=== PATIENT | female | born 1990 ===

== ENCOUNTER 2018-11-19 20:59 | Inpatient (IN) | payer OTHER ==
--- NOTE | 2018-11-19 21:38 | ED PDOC ---
HPI: Abdomen Time Seen by Provider: 11/19/18 21:28 Chief Complaint (Nursing): Abdominal Pain Chief Complaint (Provider): abdominal pain History Per: Patient History/Exam Limitations: no limitations Onset/Duration Of Symptoms: Days (4) Current Symptoms Are (Timing): Still Present Location Of Pain/Discomfort: Diffuse Quality Of Discomfort: "Pain" Associated Symptoms: Constipation Additional Complaint(s): 28 y/o female presents for evaluation of abdominal pain x 4 days. Associated constipation; last BM 4 days ago. Patient reports having gastric sleeve surgery on 11/04/18 in [place] and has been drinking protein shakes and takeing Tylenol with codeine for pain. States she tried a suppository yesterday without success. Denies fever, nausea/vomiting, chest pain, shortness of breath, palpit ations, urinary symptoms. Past Medical History Reviewed: Historical Data, Nursing Documentation, Vital Signs Vital Signs: Last Vital Signs Temp 97.6 F 11/19/18 21:11 Pulse 86 11/19/18 21:11 Resp 18 11/19/18 21:11 BP Pulse Ox 100 11/19/18 21:11 - Medical History PMH: No Chronic Diseases - Surgical History Surgical History: Cholecystectomy - Family History Family History: States: No Known Family Hx - Allergies Allergies/Adverse Reactions: Allergies Allergy/AdvReac Type Severity Reaction Status Date / Time No Known Allergies Allergy Verified 11/19/18 21:11 Review of Systems ROS Statement: Except As Marked, All Systems Reviewed And Found Negative Gastrointestinal: Positive for: Abdominal Pain, Constipation Physical Exam - Reviewed Nursing Documentation Reviewed: Yes Vital Signs Reviewed: Yes - Physical Exam Appears: Positive for: Well, Non-toxic, Uncomfortable Head Exam: Positive for: ATRAUMATIC, NORMAL INSPECTION, NORMOCEPHALIC Skin: Positive for: Normal Color Eye Exam: Positive for: Normal appearance ENT: Positive for: Normal ENT Inspection Cardiovascular/Chest: Positive for: Regular Rate, Rhythm Respiratory: Positive for: Normal Breath Sounds Gastrointestinal/Abdominal: Positive for: Bowel Sounds, Soft, Tenderness (d iffuse) Back: Positive for: Normal Inspection Extremity: Positive for: Normal ROM Neurologic/Psych: Positive for: Alert, Oriented (x3) - Laboratory Results Result Diagrams: 11/20/18 03:01 11/20/18 03:01 - ECG O2 Sat by Pulse Oximetry: 100 - Other Rad obstructive series X-Ray: Viewed By Me X-Ray Interpretation: large amount of stool throughout colon; no air-fluid levels noted - Progress ED Course And Treament: -upreg -obstructive series -lactulose -fleet enema -Patient reports no bowel movement after enema Soap suds enema ordered -Patient reports no bowel movement after soap suds enema -Manual disimpaction attempted by customs entry writer; large piece of stool removed. Patient refusing further attempts 1:30 Patient had bowel movement but now complaining of nausea Zofran ODT ordered 3:00 Patient vomiting; states she doesn't feel good Will order labs, CT abd/pelvis to r/out SBO. IV zofran, IV NS bolus ordered Patient refusing ABG and subsequent blood draw for lactic acid CT SCAN OF THE ABDOMEN AND PELVIS WITH CONTRAST. CLINICAL HISTORY: Abdominal pain. TECHNIQUE: Multiple axial and coronal CT images were obtained through the abdomen and pelvis after administration of intravenous contrast material. COMMENTS: Fluid filled mildly dilated colon. Surgical changes of the stomach. Fluid-filled mildly dilated small bowels. The liver is of uniform attenuation without mass or defect. There is no intra or extrahepatic biliary ductal dilatation. The spleen is normal. The gallbladder is surgically absent. The pancreas is of normal contour and attenuation characteristics. There is no evidence of adrenal mass. Both kidneys demonstrate prompt and equal nephrograms. The kidneys are normal in size, shape and configuration. There is no evidence of renal or ureteral mass. No renal or ureteral calculi are identified. There is no hydroureter or hydronephrosis. No evidence for appendicitis. There is no bowel wall thickening. No evidence for small or large bowel obstruction. There is no evidence of abdominal ascites or lymphadenopathy. There is no evidence of intrinsic or extrinsic bladder mass. There is no pelvic ascites or lymphadenopathy. Images of the lung bases show no evidence of pleural or parenchymal mass. There are no pleural effusions. The bony structures are free of lytic or blastic le sions. IMPRESSION: Ileus. No evidence of bowel obstruction or pneumatosis intestinalis. Gastric sleeve surgery Patient still actively vomiting and complaining of pain Patient evaluated by surgical scrub technician on-call; will place in observation under hospitalist Case discussed with Dr. Pettit for admission Disposition - Clinical Impression Clinical Impression: Abdominal pain, Intractable vomiting, Postoperative ileus - Patient ED Disposition Is Patient to be Admitted: Yes - Disposition Disposition Time: 05:28 Condition: FAIR
[2018-11-20] MEDS ORDERED: Sodium Chloride 0.9% 1,000 ML IV STA (03:01)
[2018-11-20 03:12] LABS: BASO % 0.3 % (0.0-2.0); EOS % 0.1 % (0.0-4.0); HEMOGLOBIN 14.9 g/dL (12.0-16.0); LYMPH # 0.8 K/uL (1.0-4.3); LYMPH % 5.4 % (20.0-40.0); MEAN CELL VOLUME 92.5 fl (81.0-99.0); MEAN CORPUSCULAR HEMOGLOBIN 30.8 pg (27.0-31.0); MEAN CORPUSCULAR HGB CONC 33.3 g/dL (33.0-37.0); MEAN PLATELET VOLUME 12.9 fl (7.2-11.7); MONO # 0.8 K/uL (0.0-0.8); MONO % 6.1 % (0.0-10.0); NEUT # 12.3 K/uL (1.8-7.0); NEUT % 88.1 % (50.0-75.0); PLATELET COUNT 195 K/uL (130-400); RBC 4.82 Mil/uL (3.80-5.20); RED CELL DISTRIBUTION WIDTH 12.5 % (11.5-14.5)
[2018-11-20 03:23] LABS: ALB/GLOB RATIO 1.1 (1.0-2.1); ALBUMIN 4.1 g/dL (3.5-5.0); ALT/SGPT 74 U/L (9-52); AST/SGOT 33 U/L (14-36); BLOOD UREA NITROGEN 19 mg/dl (7-17); GFR NON-AFRICAN AMERICAN > 60; LIPASE 266 U/L (23-300)
[2018-11-20] MEDS ORDERED: Iohexol 300 100 ML IJ ONE (03:30)
[2018-11-20] MEDS ORDERED: Sodium Chloride 0.9% 50 ML IV ONE (03:31)
[2018-11-20 04:55] LABS: ANISOCYTOSIS SLIGHT; BANDS 1 % (0-2); LYMPHOCYTE 3 % (20-50); MONOCYTE 4 % (0-10); NEUTROPHIL 92 % (42-75); PLATELET ESTIMATE NORMAL (NORMAL); TOTAL CELLS COUNTED 100
--- NOTE | 2018-11-20 05:36 | CP.PCM.CON ---
<Rebel Catalan - Last Filed: 11/20/18 05:30> History of Present Illness - History of Present Illness History of Present Illness: Surgery Consult Note for Dr. Camacho Consult: Abdominal pain s/p sleeve gastrectomy HPI: 28F, morbidly obese, presents to the emergency department with constipation for the past 4-5 days. Patient had a gastric sleeve done on 11/04/18 at [facility] in [place]. She has been taking tylenol with codeine for pain and diet consists solely of protein shakes. In the ED she was given lactulose and enemas without relief. Patient was manually disimpacted by ED which provided initial relief of symptoms. Shortly after, patients diffuse abdominal pain returned as well as na usea and NBNB episode of vomiting. Patient is experiencing chills and admits to hot flashes at home. No alleviating factors. Palpating the abdomen illicits pain. Denies fever, diarrhea, chest pain, shortness of breath, headaches, dizziness, or urinary symptoms. PMH: See above PSH: Gastric sleeve (11/04/18), [place] FH: Noncontributory SH: Admits to marijuana use, denies tobacco or illicit drugs ALL: NKDA Meds: T3 Review of Systems - Constitutional Constitutional: Chills. absent: Fever - EENT Eyes: absent: Blurred Vision, Change in Vision Nose/Mouth/Throat: absent: Nasal Congestion, Nasal Discharge - Cardiovascular Cardiovascular: absent: Chest Pain, Dyspnea - Respiratory Respiratory: absent: Cough, Dyspnea - Gastrointestinal Gastrointestinal: Abdominal Pain, Constipation, Nausea, Vomiting. absent: Diarrhea Additional comments: Hiccups - Genitourinary Genitourinary: absent: Difficulty Urinating, Dysuria - Musculoskeletal Musculoskeletal: absent: Back Pain, Neck Pain - Integumentary Integumentary: absent: Bleeding Lesions, Changing Lesions - Neurological Neurological: absent: Confusion, Dizziness - Psychiatric Psychiatric: absent: Anxiety, Depression Past Patient History - SURGICAL HISTORY Hx Cholecystectomy: Yes Meds Allergies/Adverse Reactions: Allergies Allergy/AdvReac Type Severity Reaction Status Date / Time No Known Allergies Allergy Verified 11/19/18 21:11 Physical Exam - Constitutional Appears: Non-toxic, No Acute Distress - Head Exam Head Exam: ATRAUMATIC, NORMAL INSPECTION, NORMOCEPHALIC - Eye Exam Eye Exam: EOMI - ENT Exam ENT Exam: Mucous Membranes Dry - Respiratory Exam Respiratory Exam: NORMAL BREATHING PATTERN. absent: Accessory Muscle Use, Wheezes, Respiratory Distress - Cardiovascular Exam Cardiovascular Exam: REGULAR RHYTHM. absent: Tachycardia - GI/Abdominal Exam GI & Abdominal Exam: Normal Bowel Sounds, Soft, Tenderness. absent: Distended, Firm, Guarding, Rebound - Rectal Exam Rectal Exam: NORMAL INSPECTION - Back Exam Back exam: absent: CVA tenderness (L), CVA tenderness (R) - Neurological Exam Neurological exam: Alert, Oriented x3 - Psychiatric Exam Psychiatric exam: Normal Affect, Normal Mood - Skin Skin Exam: Dry, Intact, Normal Color, Warm Additional comments: mild bruising around incisions otherwise c/d/i, healing well, no erythema or drainage Results - Vital Signs Recent Vital Signs: Last Vital Signs Temp 98.1 F 11/20/18 03:09 Pulse 58 L 11/20/18 03:07 Resp 16 11/20/18 03:07 BP 123/65 11/20/18 03:07 Pulse Ox 100 11/20/18 05:29 - Labs Result Diagrams: 11/20/18 03:01 11/20/18 03:01 Labs: Laboratory Results - last 24 hr 11/20/18 11/20/18 03:01 03:01 WBC 14.0 H RBC 4.82 Hgb 14.9 Hct 44.6 MCV 92.5 MCH 30.8 MCHC 33.3 RDW 12.5 Plt Count 195 MPV 12.9 H Neut % (Auto) 88.1 H Lymph % (Auto) 5.4 L [place] % (Auto) 6.1 Eos % (Auto) 0.1 Baso % (Auto) 0.3 Neut # (Auto) 12.3 H Lymph # (Auto) 0.8 L [place] # (Auto) 0.8 Eos # (Auto) 0.0 Baso # (Auto) 0.0 Neutrophils % (Manual) 92 H Band Neutrophils % 1 Lymphocytes % (Manual) 3 L Monocytes % (Manual) 4 Platelet Estimate Normal Anisocytosis (manual) Slight Sodium 141 Potassium 4.2 Chloride 107 Carbon Dioxide 20 L Anion Gap 18 BUN 19 H Creatinine 0.6 L Est GFR ( Amer) > 60 Est GFR (Non-Af Amer) > 60 Random Glucose 111 H Calcium 10.0 Total Bilirubin 0.5 AST 33 ALT 74 H Alkaline Phosphatase 174 H Total Protein 7.9 Albumin 4.1 Globulin 3.8 Albumin/Globulin Ratio 1.1 Lipase 266 Assessment & Plan - Assessment and Plan (Free Text) Assessment: 28F s/p gastric sleeve w/ abdominal pain, constipation, nausea, vomiting CTAP: dilated large intestine, no free air, no signs of obstruction Plan: NPO IVF Antiemetics and analgesics PRN Repeat AM labs Monitor return of bowel function Monitor hemodynamic stability Further recs per Dr. Doug Catalan PGY1 <Bret Camacho - Last Filed: 11/20/18 11:21> Meds - Medications Medications: Current Medications Docusate Sodium (Colace) 100 mg PO DAILY [facility] Lactated Ringer's (Lactated Ringer's) 1,000 mls @ 140 mls/hr IV .Q7H9M [facility] Last Admin: 11/20/18 06:10 Dose: 140 mls/hr Lactated Ringer's (Lactated Ringer's) 1,000 mls @ 150 mls/hr IV .Q6H40M [facility] Last Admin: 11/20/18 08:10 Dose: Not Given Ketorolac Tromethamine (Toradol) 30 mg IVP Q6 PRN PRN Reason: Pain, moderate (4-7) Last Admin: 11/20/18 09:08 Dose: 30 mg Ketorolac Tromethamine (Toradol) 15 mg IVP Q6 PRN PRN Reason: Pain, Mild (1-3) Metoclopramide HCl (Reglan) 10 mg IVP Q6 PRN PRN Reason: Nausea/Vomiting Ondansetron HCl (Zofran Inj) 4 mg IVP Q6 PRN PRN Reason: Nausea/Vomiting Last Admin: 11/20/18 09:09 Dose: 4 mg Polyethylene Glycol (Miralax) 17 gm PO DAILY [facility] Results - Vital Signs Recent Vital Signs: Last Vital Signs Temp 98.0 F 11/20/18 08:30 Pulse 56 L 11/20/18 08:30 Resp 20 11/20/18 08:30 BP 112/75 11/20/18 08:30 Pulse Ox 97 11/20/18 08:30 - Labs Result Diagrams: 11/20/18 03:01 11/20/18 03:01 Labs: Laboratory Results - last 24 hr 11/20/18 11/20/18 03:01 03:01 WBC 14.0 H RBC 4.82 Hgb 14.9 Hct 44.6 MCV 92.5 MCH 30.8 MCHC 33.3 RDW 12.5 Plt Count 195 MPV 12.9 H Neut % (Auto) 88.1 H Lymph % (Auto) 5.4 L [place] % (Auto) 6.1 Eos % (Auto) 0.1 Baso % (Auto) 0.3 Neut # (Auto) 12.3 H Lymph # (Auto) 0.8 L [place] # (Auto) 0.8 Eos # (Auto) 0.0 Baso # (Auto) 0.0 Neutrophils % (Manual) 92 H Band Neutrophils % 1 Lymphocytes % (Manual) 3 L Monocytes % (Manual) 4 Platelet Estimate Normal Anisocytosis (manual) Slight Sodium 141 Potassium 4.2 Chloride 107 Carbon Dioxide 20 L Anion Gap 18 BUN 19 H Creatinine 0.6 L Est GFR ( Amer) > 60 Est GFR (Non-Af Amer) > 60 Random Glucose 111 H Calcium 10.0 Total Bilirubin 0.5 AST 33 ALT 74 H Alkaline Phosphatase 174 H Total Protein 7.9 Albumin 4.1 Globulin 3.8 Albumin/Globulin Ratio 1.1 Lipase 266 Assessment & Plan - Assessment and Plan (Free Text) Plan: The patient was seen and examined by the residents. She appears to have an ileus, brought on by the fecal impaction. At this point she needs to have fluid hydration, she is currently having nausea and vomiting, when she improves can start a diet
[2018-11-20] MEDS: Lactated Ringer's 1,000 ML IV SCH ×7 (06:10→22:50)
--- NOTE | 2018-11-20 06:55 | CP.PCM.HP ---
History of Present Illness - History of Present Illness History of Present Illness: CC: Abd pain; s/p sleeve gastrectomy on 11/04/2018 HPI: This is a 28 y/o female with morbid obesity s/p gastric sleeve on 11/04/2018 who presents with abd pain and constipation x 5 days. She had the procedure done at in [place], and since then has only been taking in protein shakes, and has been taking T#3 for pain. In ED she was given lactulose and enemas without relief, and was manually disimpacted. This did help somewhat with her symptoms initially, but then she developed more diffuse abd pain. She has also had nausea with an episode of vomiting, nb/nb. Patient denies fever, but may have occasional chills. Denies other symptoms like CP, SOB. Denies dysuria. ROS: 14 systems reviewed, negative other than HPI MHx: Morbid obesity SHx: Gastric sleeve 11/04/18, cholecystectomy in the past Allergies: NKDA Medications: T#3 Fam Hx: Reviewed, no relevant findings Social Hx: Lives at home, no tobacco, no significant EtOH, Occ MJ Present on Admission - Present on Admission Any Indicators Present on Admission: No Past Patient History - Past Social History Smoking Status: Former Smoker - PSYCHIATRIC Hx Substance Use: No - SURGICAL HISTORY Hx Cholecystectomy: Yes - ANESTHESIA Hx Anesthesia: Yes Hx Anesthesia Reactions: No Hx Malignant Hyperthermia: No Meds Allergies/Adverse Reactions: Allergies Allergy/AdvReac Type Severity Reaction Status Date / Time No Known Allergies Allergy Verified 11/19/18 21:11 Physical Exam - Constitutional Appears: No Acute Distress Additional comments: morbidly obese - Head Exam Head Exam: ATRAUMATIC, NORMOCEPHALIC - Eye Exam Eye Exam: EOMI, PERRL - ENT Exam ENT Exam: Mucous Membranes Moist - Neck Exam Neck exam: Positive for: Full Rom - Respiratory Exam Respiratory Exam: Clear to Auscultation Bilateral, NORMAL BREATHING PATTERN - Cardiovascular Exam Cardiovascular Exam: REGULAR RHYTHM, +S1, +S2 - GI/Abdominal Exam GI & Abdominal Exam: Diminished Bowel Sounds, Hypoactive Bowel Sounds, Soft, Tenderness - Extremities Exam Extremities exam: Positive for: full ROM, normal inspection - Neurological Exam Neurological exam: Alert, CN II-XII Intact, Oriented x3 - Psychiatric Exam Psychiatric exam: Normal Affect, Normal Mood - Skin Skin Exam: Dry, Warm Results - Vital Signs Recent Vital Signs: Last Vital Signs Temp 97.5 F L 11/20/18 06:25 Pulse 61 11/20/18 06:25 Resp 17 11/20/18 06:25 BP 148/80 11/20/18 06:25 Pulse Ox 100 11/20/18 06:12 - Labs Result Diagrams: 11/20/18 03:01 11/20/18 03:01 Labs: Laboratory Results - last 24 hr 11/20/18 11/20/18 03:01 03:01 WBC 14.0 H RBC 4.82 Hgb 14.9 Hct 44.6 MCV 92.5 MCH 30.8 MCHC 33.3 RDW 12.5 Plt Count 195 MPV 12.9 H Neut % (Auto) 88.1 H Lymph % (Auto) 5.4 L [place] % (Auto) 6.1 Eos % (Auto) 0.1 Baso % (Auto) 0.3 Neut # (Auto) 12.3 H Lymph # (Auto) 0.8 L [place] # (Auto) 0.8 Eos # (Auto) 0.0 Baso # (Auto) 0.0 Neutrophils % (Manual) 92 H Band Neutrophils % 1 Lymphocytes % (Manual) 3 L Monocytes % (Manual) 4 Platelet Estimate Normal Anisocytosis (manual) Slight Sodium 141 Potassium 4.2 Chloride 107 Carbon Dioxide 20 L Anion Gap 18 BUN 19 H Creatinine 0.6 L Est GFR ( Amer) > 60 Est GFR (Non-Af Amer) > 60 Random Glucose 111 H Calcium 10.0 Total Bilirubin 0.5 AST 33 ALT 74 H Alkaline Phosphatase 174 H Total Protein 7.9 Albumin 4.1 Globulin 3.8 Albumin/Globulin Ratio 1.1 Lipase 266 Assessment & Plan (1) Abdominal pain Assessment and Plan: 28 y/o female s/p gastric sleeve, presenting with constipation, n/v, and abdominal pain. -NPO, IVF -Pain mgmt per scale -Zofran IV and Reglan IV given for n/v -Surgery consult (Doug) Status: Acute (2) Postoperative ileus Status: Acute (3) Elevated white blood cell count Assessment and Plan: May be reactive, no sign of infection -abx only if infection appears likely; none given at this time Status: Acute (4) Intractable vomiting Status: Acute (5) DVT prophylaxis Assessment and Plan: SCDs only for now, given the possibility that she may need any procedures Status: Acute
[2018-11-20] MEDS: POLYETHYLENE GLYCOL 3350 17 GM/Dose PACKET PO SCH (12:00)
[2018-11-20] MEDS: Hydrocortisone 1% Oint TOP SCH ×2 (12:01→16:14)
[2018-11-20 12:16] LABS: HEMOGLOBIN 13.6 g/dL (12.0-16.0); MEAN CELL VOLUME 93.5 fl (81.0-99.0); MEAN CORPUSCULAR HEMOGLOBIN 30.9 pg (27.0-31.0); MEAN CORPUSCULAR HGB CONC 33.1 g/dL (33.0-37.0); RBC 4.39 Mil/uL (3.80-5.20); WHITE BLOOD COUNT 10.9 K/uL (4.8-10.8)
--- NOTE | 2018-11-20 12:19 | CT ---
Date of service: 11/20/2018 PROCEDURE: CT Abdomen and Pelvis with contrast HISTORY: abd pain, constipation; s/p gastric sleeve x 2wks COMPARISON: Not available TECHNIQUE: Contrast dose: 95 mL Omnipaque 300 Radiation dose: Total exam DLP = 819.57 mGy-cm. This CT exam was performed using one or more of the following dose reduction techniques: Automated exposure control, adjustment of the mA and/or kV according to patient size, and/or use of iterative reconstruction technique. FINDINGS: LOWER THORAX: Unremarkable. LIVER: Unremarkable. No gross lesion or ductal dilatation. GALLBLADDER AND BILE DUCTS: Cholecystectomy PANCREAS: Unremarkable. No gross lesion or ductal dilatation. SPLEEN: Unremarkable. ADRENALS: Unremarkable. No mass. KIDNEYS AND URETERS: Unremarkable. No hydronephrosis. No solid mass. VASCULATURE: Unremarkable. No aortic aneurysm. No aortic atherosclerotic calcification or mural plaque present. BOWEL: Status post sleeve gastrectomy. No bowel obstruction. No abnormal bowel loops. APPENDIX: Normal appendix. PERITONEUM: Unremarkable. No free fluid. No free air. LYMPH NODES: Unremarkable. No enlarged lymph nodes. BLADDER: Nondistended REPRODUCTIVE: Normal uterus BONES: No acute fracture. OTHER FINDINGS: None. IMPRESSION: Status post sleeve gastrectomy. No acute abnormality. The preliminary findings for this examination were reported by [facility] at 4:35 a.m. on 11/20/2018. There is concurrence of this report with the preliminary findings.
[2018-11-20 12:47] LABS: ALB/GLOB RATIO 1.1 (1.0-2.1); ALBUMIN 3.6 g/dL (3.5-5.0); ALT/SGPT 61 U/L (9-52); AST/SGOT 26 U/L (14-36); BLOOD UREA NITROGEN 11 mg/dl (7-17); CALCIUM 9.1 mg/dL (8.4-10.2); GFR NON-AFRICAN AMERICAN > 60
[2018-11-20 13:14] VITALS: BMI 42.7
[2018-11-20] MEDS: Enoxaparin 40 mg Syringe SC SCH (14:39)
--- NOTE | 2018-11-20 16:28 | RAD ---
Date of service: 11/19/2018 PROCEDURE: Radiographs of the chest and abdomen (obstructive series) HISTORY: pain, constipation; 2 wks post op gastric sleeve COMPARISON: No prior. TECHNIQUE: AP radiograph of the chest, with upright and supine radiographs of the abdomen. FINDINGS: CHEST: Lungs: Clear. Cardiovascular: Normal size heart. No pulmonary vascular congestion. No aortic atherosclerotic calcification present Pleura: No pleural fluid. No pneumothorax. Other findings: None. ABDOMEN AND PELVIS: Air-fluid levels are identified at the central upper abdomen with gas minimally seen in additional small-bowel loops and likely large bowel at the right twan abdomen and potentially in the pelvis as well. A mild amount retained fecal material scattered throughout the large bowel. No prominent free intrarenal gas collection identified. Surgical clips are identified at the epigastric region as well as right upper quadrant abdomen. Gas identified within the gastric viscus somewhat as well. This is a nonspecific pattern. Potential developing ileus or small-bowel obstruction with difficult to fully exclude this point. Follow-up CT or radiography recommended. IMPRESSION: Potential developing limited ileus or bowel obstruction. Pattern is nonspecific. No free intra peritoneal gas collection. Postoperative changes seen the upper abdomen. Follow-up radiography or CT is recommended. No acute cardiopulmonary changes appreciable.
[2018-11-21] MEDS: Lactated Ringer's 1,000 ML IV SCH ×2 (03:00→12:38)
[2018-11-21 06:57] LABS: ALB/GLOB RATIO 1.2 (1.0-2.1); ALBUMIN 3.2 g/dL (3.5-5.0); ALT/SGPT 58 U/L (9-52); AST/SGOT 24 U/L (14-36); BLOOD UREA NITROGEN 9 mg/dl (7-17); CALCIUM 8.8 mg/dL (8.4-10.2); GFR NON-AFRICAN AMERICAN > 60
[2018-11-21 07:19] LABS: HEMOGLOBIN 12.7 g/dL (12.0-16.0); MEAN CELL VOLUME 93.8 fl (81.0-99.0); MEAN CORPUSCULAR HEMOGLOBIN 30.9 pg (27.0-31.0); MEAN CORPUSCULAR HGB CONC 32.9 g/dL (33.0-37.0); RBC 4.1 Mil/uL (3.80-5.20); RED CELL DISTRIBUTION WIDTH 12.8 % (11.5-14.5); WHITE BLOOD COUNT 6.5 K/uL (4.8-10.8)
--- NOTE | 2018-11-21 07:29 | CP.PCM.PN ---
Subjective - Date & Time of Evaluation Date of Evaluation: 11/21/18 Time of Evaluation: 07:26 - Subjective Subjective: Surgery Progress note Patient seen and examined at bedside. s/p lap sleeve gastrectomy. Abdominal pain improved. Nausea significantly improved since yesterday. Denies vomiting. + BM and flatus. Denies blood in stool. Update of note: at lunch time patient vomited after diet was advanced. Objective - Vital Signs/Intake and Output Vital Signs (last 24 hours): Temp Pulse Resp BP Pulse Ox 98 F 55 L 18 101/63 98 11/21/18 00:00 11/21/18 00:00 11/21/18 00:00 11/21/18 00:00 11/21/18 00:00 - Medications Medications: Current Medications Docusate Sodium (Colace) 100 mg PO DAILY [facility] Enoxaparin Sodium (Lovenox) 40 mg SC DAILY [facility]; Protocol Last Admin: 11/20/18 14:39 Dose: 40 mg Hydrocortisone (Cortizone 1% Oint) 1 applic TOP BID [facility] Last Admin: 11/20/18 16:14 Dose: 1 applic Lactated Ringer's (Lactated Ringer's) 1,000 mls @ 150 mls/hr IV .Q6H40M [facility] Last Admin: 11/20/18 22:50 Dose: 150 mls/hr Ketorolac Tromethamine (Toradol) 30 mg IVP Q6 PRN PRN Reason: Pain, moderate (4-7) Last Admin: 11/20/18 09:08 Dose: 30 mg Ketorolac Tromethamine (Toradol) 15 mg IVP Q6 PRN PRN Reason: Pain, Mild (1-3) Metoclopramide HCl (Reglan) 10 mg IVP Q6 PRN PRN Reason: Nausea/Vomiting Ondansetron HCl (Zofran Inj) 4 mg IVP Q6 PRN PRN Reason: Nausea/Vomiting Last Admin: 11/20/18 09:09 Dose: 4 mg Polyethylene Glycol (Miralax) 17 gm PO DAILY [facility] Last Admin: 11/20/18 12:00 Dose: Not Given - Labs Labs: 11/21/18 05:45 11/21/18 05:45 - Constitutional Appears: Non-toxic, No Acute Distress - Eye Exam Eye Exam: EOMI. absent: Scleral icterus - ENT Exam ENT Exam: Mucous Membranes Moist - Respiratory Exam Respiratory Exam: NORMAL BREATHING PATTERN. absent: Accessory Muscle Use, Respiratory Distress - Cardiovascular Exam Cardiovascular Exam: REGULAR RHYTHM. absent: Bradycardia, Tachycardia - GI/Abdominal Exam GI & Abdominal Exam: Soft, Tenderness (minimal tenderness nicole-umbilical). absent: Distended, Firm, Guarding, Rigid - Neurological Exam Neurological Exam: Alert, Awake, Oriented x3 - Psychiatric Exam Psychiatric exam: Normal Affect - Skin Skin Exam: Intact, Warm Assessment and Plan - Assessment and Plan (Free Text) Assessment: 28F s/p lap sleeve gastrectomy 2 weeks ago, w/ post op abdominal pain 2/2 constipation vs ileus Plan: - Monitor bowel function - pain control PRN; avoid narcotics - c/w IVF - pending progression clinically throughout the day; may advance to bariatric liquid diet. - further recs per surgical attending PGY2
[2018-11-21] MEDS: POLYETHYLENE GLYCOL 3350 17 GM/Dose PACKET PO SCH (08:35)
[2018-11-21] MEDS: Enoxaparin 40 mg Syringe SC SCH (08:35)
[2018-11-21] MEDS: Hydrocortisone 1% Oint TOP SCH ×2 (08:36→17:02)
--- NOTE | 2018-11-21 09:21 | CP.PCM.PN ---
Subjective - Date & Time of Evaluation Date of Evaluation: 11/21/18 Time of Evaluation: 09:16 - Subjective Subjective: General Surgery Pt seen and examined this AM. She reports she woke up feeling well and then she began to have nausea and epigastric abdominal pain. She denies any vomiting. She reports her nausea and abdominal pain is the same from when she was admitted. She also states her last flatus and BM was yesterday at 12pm. Labs and vitals noted. PE Gen: Pt returned from showering, ambulating without difficulty. Skin: warm and dry Abd: Soft, (+) epigastric tenderness, (-) distention, laparoscopic scars healing Extr: (-) calf tenderness bilaterally A/P S/P gastric sleeve at [facility] on 11/04/18 with ileus vs constipation Pt to be NPO now as her symptoms have returned Carafate 1g ordered BID Continue IVF Continue toradol prn for pain Monitor vitals Monitor labs Objective - Vital Signs/Intake and Output Vital Signs (last 24 hours): Temp Pulse Resp BP Pulse Ox 98 F 55 L 18 101/63 98 11/21/18 00:00 11/21/18 00:00 11/21/18 00:00 11/21/18 00:00 11/21/18 00:00 - Medications Medications: Current Medications Docusate Sodium (Colace) 100 mg PO DAILY [facility] Last Admin: 11/21/18 08:34 Dose: 100 mg Enoxaparin Sodium (Lovenox) 40 mg SC DAILY [facility]; Protocol Last Admin: 11/21/18 08:35 Dose: 40 mg Hydrocortisone (Cortizone 1% Oint) 1 applic TOP BID [facility] Last Admin: 11/21/18 08:36 Dose: 1 applic Lactated Ringer's (Lactated Ringer's) 1,000 mls @ 150 mls/hr IV .Q6H40M [facility] Last Admin: 11/21/18 03:00 Dose: Not Given Ketorolac Tromethamine (Toradol) 30 mg IVP Q6 PRN PRN Reason: Pain, moderate (4-7) Last Admin: 11/21/18 08:32 Dose: 30 mg Ketorolac Tromethamine (Toradol) 15 mg IVP Q6 PRN PRN Reason: Pain, Mild (1-3) Metoclopramide HCl (Reglan) 10 mg IVP Q6 PRN PRN Reason: Nausea/Vomiting Ondansetron HCl (Zofran Inj) 4 mg IVP Q6 PRN PRN Reason: Nausea/Vomiting Last Admin: 11/21/18 08:31 Dose: 4 mg Polyethylene Glycol (Miralax) 17 gm PO DAILY [facility] Last Admin: 11/21/18 08:35 Dose: 17 gm - Labs Labs: 11/21/18 05:45 11/21/18 05:45
--- NOTE | 2018-11-21 10:32 | CP.PCM.DIS ---
Provider - Provider Date of Admission: 11/20/18 05:27 Attending physician: Cordell Pettit MD Consults: 11/20/18 05:24 Surgery [General Surgery Consult] Stat Comment: Consulting Provider: Bret Camacho Consulting Physician: Bret Camacho Reason for Consult: abdominal pain, vomiting, constipation post-op Hospital Course - Lab Results Lab Results: Micro Results 11/20/18 02:53 Blood Blood Culture - Preliminary NO GROWTH AFTER 24 HOURS Most Recent Lab Values WBC 6.5 K/uL (4.8-10.8) 11/21/18 05:45 RBC 4.10 Mil/uL (3.80-5.20) 11/21/18 05:45 Hgb 12.7 g/dL (12.0-16.0) 11/21/18 05:45 Hct 38.4 % (34.0-47.0) 11/21/18 05:45 MCV 93.8 fl (81.0-99.0) 11/21/18 05:45 MCH 30.9 pg (27.0-31.0) 11/21/18 05:45 MCHC 32.9 g/dL (33.0-37.0) L 11/21/18 05:45 RDW 12.8 % (11.5-14.5) 11/21/18 05:45 Plt Count 157 K/uL (130-400) 11/21/18 05:45 MPV 12.9 fl (7.2-11.7) H 11/20/18 03:01 Neut % (Auto) 88.1 % (50.0-75.0) H 11/20/18 03:01 Lymph % (Auto) 5.4 % (20.0-40.0) L 11/20/18 03:01 Leake % (Auto) 6.1 % (0.0-10.0) 11/20/18 03:01 Eos % (Auto) 0.1 % (0.0-4.0) 11/20/18 03:01 Baso % (Auto) 0.3 % (0.0-2.0) 11/20/18 03:01 Neut # (Auto) 12.3 K/uL (1.8-7.0) H 11/20/18 03:01 Lymph # (Auto) 0.8 K/uL (1.0-4.3) L 11/20/18 03:01 Leake # (Auto) 0.8 K/uL (0.0-0.8) 11/20/18 03:01 Eos # (Auto) 0.0 K/uL (0.0-0.7) 11/20/18 03:01 Baso # (Auto) 0.0 K/uL (0.0-0.2) 11/20/18 03:01 Neutrophils % (Manual) 92 % (42-75) H 11/20/18 03:01 Band Neutrophils % 1 % (0-2) 11/20/18 03:01 Lymphocytes % (Manual) 3 % (20-50) L 11/20/18 03:01 Monocytes % (Manual) 4 % (0-10) 11/20/18 03:01 Platelet Estimate Normal (NORMAL) 11/20/18 03:01 Anisocytosis (manual) Slight 11/20/18 03:01 Sodium 142 mmol/l (132-148) 11/21/18 05:45 Potassium 3.6 MMOL/L (3.6-5.0) 11/21/18 05:45 Chloride 106 mmol/L (98-107) 11/21/18 05:45 Carbon Dioxide 24 mmol/L (22-30) 11/21/18 05:45 Anion Gap 16 (10-20) 11/21/18 05:45 BUN 9 mg/dl (7-17) 11/21/18 05:45 Creatinine 0.5 mg/dl (0.7-1.2) L 11/21/18 05:45 Est GFR ( Amer) > 60 11/21/18 05:45 Est GFR (Non-Af Amer) > 60 11/21/18 05:45 Random Glucose 84 mg/dL (65-105) 11/21/18 05:45 Calcium 8.8 mg/dL (8.4-10.2) 11/21/18 05:45 Phosphorus 4.5 mg/dl (2.5-4.5) 11/20/18 12:10 Magnesium 1.9 MG/DL (1.6-2.3) 11/20/18 12:10 Total Bilirubin 0.4 mg/dl (0.2-1.3) 11/21/18 05:45 AST 24 U/L (14-36) 11/21/18 05:45 ALT 58 U/L (9-52) H 11/21/18 05:45 Alkaline Phosphatase 114 U/L (38-126) 11/21/18 05:45 Total Protein 5.8 G/DL (6.3-8.2) L 11/21/18 05:45 Albumin 3.2 g/dL (3.5-5.0) L 11/21/18 05:45 Globulin 2.6 gm/dL (2.2-3.9) 11/21/18 05:45 Albumin/Globulin Ratio 1.2 (1.0-2.1) 11/21/18 05:45 Lipase 266 U/L (23-300) 11/20/18 03:01 Discharge Exam - Head Exam Head Exam: ATRAUMATIC, NORMOCEPHALIC Discharge Plan - Follow Up Plan Condition: FAIR Disposition: HOME/ ROUTINE Instructions: Constipation, Adult (DC), Nausea and Vomiting, Adult (DC), Care After Weight Loss Surgery Additional Instructions: follow up with primary MD and surgeon Referrals: Bret Camacho MD [Staff Provider] -
[2018-11-21 10:43] LABS: SQUAMOUS EPITHIAL 1 /hpf (0-5); URINE BACTERIA RARE (<OCC); URINE BILIRUBIN NEGATIVE (NEGATIVE); URINE BLOOD MODERATE (NEGATIVE); URINE CLARITY SLIGHTY-CLOUDY (Clear); URINE COLOR YELLOW (YELLOW); URINE GLUCOSE (UA) NEG (NEGATIVE); URINE LEUKOCYTE ESTERASE SMALL Leu/uL (Negative); URINE PROTEIN 100 mg/dL (NEGATIVE)
[2018-11-21] MEDS: Sucralfate 1 gm/10 ml Oral Susp UD PO SCH ×2 (12:55→17:02)
--- NOTE | 2018-11-21 14:40 | CP.PCM.PN ---
Subjective - Date & Time of Evaluation Date of Evaluation: 11/21/18 Time of Evaluation: 10:45 - Subjective Subjective: 28 y/o F s/p gastric sleeve on 11/04/18 was evaluated and examined by bedside. Around 6 AM, pt reported feeling well. After a small trial of liquid diet, pt developed nausea and cramping epigastric abdominal pain. Pt only ate a sip of g barbie latoya and a small spoon of soup. Pt reports last BM was last night. Pt afebrile with NO acute events overnight. Objective - Vital Signs/Intake and Output Vital Signs (last 24 hours): Temp Pulse Resp BP Pulse Ox 98 F 55 L 18 101/63 98 11/21/18 00:00 11/21/18 00:00 11/21/18 00:00 11/21/18 00:00 11/21/18 00:00 - Medications Medications: Current Medications Docusate Sodium (Colace) 100 mg PO DAILY [facility] Last Admin: 11/21/18 08:34 Dose: 100 mg Enoxaparin Sodium (Lovenox) 40 mg SC DAILY [facility]; Protocol Last Admin: 11/21/18 08:35 Dose: 40 mg Hydrocortisone (Cortizone 1% Oint) 1 applic TOP BID [facility] Last Admin: 11/21/18 08:36 Dose: 1 applic Lactated Ringer's (Lactated Ringer's) 1,000 mls @ 150 mls/hr IV .Q6H40M [facility] Last Admin: 11/21/18 12:38 Dose: Not Given Ketorolac Tromethamine (Toradol) 30 mg IVP Q6 PRN PRN Reason: Pain, moderate (4-7) Last Admin: 11/21/18 08:32 Dose: 30 mg Ketorolac Tromethamine (Toradol) 15 mg IVP Q6 PRN PRN Reason: Pain, Mild (1-3) Metoclopramide HCl (Reglan) 10 mg IVP Q6 PRN PRN Reason: Nausea/Vomiting Ondansetron HCl (Zofran Inj) 4 mg IVP Q6 PRN PRN Reason: Nausea/Vomiting Last Admin: 11/21/18 08:31 Dose: 4 mg Polyethylene Glycol (Miralax) 17 gm PO DAILY [facility] Last Admin: 11/21/18 08:35 Dose: 17 gm Sucralfate (Carafate Oral Susp) 1 gm PO BID [facility] Last Admin: 11/21/18 12:55 Dose: 1 gm - Labs Labs: 11/21/18 05:45 11/21/18 05:45 - Constitutional Appears: No Acute Distress - Head Exam Head Exam: ATRAUMATIC, NORMAL INSPECTION - Eye Exam Eye Exam: EOMI - ENT Exam ENT Exam: Mucous Membranes Moist - Neck Exam Neck Exam: Full ROM. absent: Meningismus - Respiratory Exam Respiratory Exam: NORMAL BREATHING PATTERN. absent: Rales, Rhonchi, Wheezes, Respiratory Distress - Cardiovascular Exam Cardiovascular Exam: REGULAR RHYTHM, +S1, +S2 - GI/Abdominal Exam GI & Abdominal Exam: Distended (obese), Soft, Tenderness. absent: Guarding, Rigid, Rebound - Extremities Exam Extremities Exam: Full ROM, Normal Capillary Refill, Normal Inspection. absent: Calf Tenderness - Neurological Exam Neurological Exam: Alert, Awake, Oriented x3 Assessment and Plan - Assessment and Plan (Free Text) Assessment: 28 y/o F s/p sleeve gastrectomy was admitted for evaluation and management of intractable nausea and emesis. --CT Abdomen consistent with ileus with NO obstruction. PLAN > Postoperative ileus/Intractable vomiting --Afebrile, leukocytosis resolved and likely due to emesis --POD 17, S/P Sleeve gastrectomy --General Surgery on board, Dr Camacho --On IV Zofran and Metoclopramide --Still nauseous, vomited today --NPO, will advance as needed to full liquid diet. >Constipation --S/P fleet enema, --Pt had bowel movement after digital disimpaction --Last bowel movement last night, diarrhea. >DVT prophylaxis --SCD's --Lovenox 40mg SC daily Case discussed with Dr Rashard Lemus PGY-2
[2018-11-22] MEDS: Lactated Ringer's 1,000 ML IV SCH ×2 (02:20→06:23)
--- NOTE | 2018-11-22 08:08 | CP.PCM.PN ---
Subjective - Date & Time of Evaluation Date of Evaluation: 11/22/18 Time of Evaluation: 07:00 - Subjective Subjective: Surgery: Dr. Camacho Patient still complains of nausea and 2x episodes of vomiting. She denies bowel movement since 2 days. She denies f/c. She complains of burning epigastric pain somewhat improved with carafate. She is requesting to be sent to her primary surgeon. Objective - Vital Signs/Intake and Output Vital Signs (last 24 hours): Temp Pulse Resp BP Pulse Ox 98.8 F 74 18 126/81 100 11/22/18 00:37 11/22/18 00:37 11/22/18 00:37 11/22/18 00:37 11/22/18 00:37 - Medications Medications: Current Medications Docusate Sodium (Colace) 100 mg PO DAILY [facility] Last Admin: 11/21/18 08:34 Dose: 100 mg Enoxaparin Sodium (Lovenox) 40 mg SC DAILY [facility]; Protocol Last Admin: 11/21/18 08:35 Dose: 40 mg Hydrocortisone (Cortizone 1% Oint) 1 applic TOP BID [facility] Last Admin: 11/21/18 17:02 Dose: 1 applic Lactated Ringer's (Lactated Ringer's) 1,000 mls @ 150 mls/hr IV .Q6H40M [facility] Last Admin: 11/22/18 06:23 Dose: Not Given Ketorolac Tromethamine (Toradol) 30 mg IVP Q6 PRN PRN Reason: Pain, moderate (4-7) Last Admin: 11/21/18 22:26 Dose: 30 mg Ketorolac Tromethamine (Toradol) 15 mg IVP Q6 PRN PRN Reason: Pain, Mild (1-3) Metoclopramide HCl (Reglan) 10 mg IVP Q6 PRN PRN Reason: Nausea/Vomiting Last Admin: 11/21/18 22:02 Dose: 10 mg Ondansetron HCl (Zofran Inj) 4 mg IVP Q6 PRN PRN Reason: Nausea/Vomiting Last Admin: 11/22/18 02:13 Dose: 4 mg Polyethylene Glycol (Miralax) 17 gm PO DAILY [facility] Last Admin: 11/21/18 08:35 Dose: 17 gm Sucralfate (Carafate Oral Susp) 1 gm PO BID [facility] Last Admin: 11/21/18 17:02 Dose: 1 gm - Labs Labs: 11/21/18 05:45 11/21/18 05:45 - Constitutional Appears: Non-toxic, No Acute Distress - Head Exam Head Exam: ATRAUMATIC, NORMOCEPHALIC - Eye Exam Eye Exam: EOMI, Normal appearance - ENT Exam ENT Exam: Mucous Membranes Moist - Respiratory Exam Respiratory Exam: NORMAL BREATHING PATTERN. absent: Respiratory Distress - Cardiovascular Exam Cardiovascular Exam: REGULAR RHYTHM. absent: Tachycardia - GI/Abdominal Exam GI & Abdominal Exam: Soft. absent: Distended, Tenderness - Neurological Exam Neurological Exam: Alert, Awake - Skin Skin Exam: Dry, Normal Color, Warm Assessment and Plan - Assessment and Plan (Free Text) Assessment: 28 y/o female s/p sleeve gastrectomy w/ persistent nausea and vomiting Plan: -IVFS -cont prn zofran, schedule reglan -cont carafate -OOB -suppository x 1 -cont colace and mirilax -conservative treatment, needs follow up with primary surgeon -d/w attending AKWhite PGY4
--- NOTE | 2018-11-22 08:46 | CP.PCM.PN ---
Subjective - Date & Time of Evaluation Date of Evaluation: 11/22/18 Time of Evaluation: 08:41 - Subjective Subjective: General Surgery Pt seen and examined this AM. She reports having frequent episodes of vomiting while being NPO. She reports she continues to have epigastric pain. (-) BM since 2 days ago. Pt has been ambulatory. Labs and vitals noted. Today's BMP pending. PE Gen: Pt sitting in chair in mild distress. Pt just vomited, emesis on floor (bilious) Skin: warm and dry Cardio: s1s2 RRR Lungs: CTA bilaterally Abd: Soft, (+) epigastric tenderness, (-) distention Extr: (-) swelling or erythema of bilateral LEs. A/P Nausea and vomiting, unable to tolerate PO. Continue antiemetics Recommend GI cx Toradol discontinued for pain, in case pt has a peptic ulcer Tylenol orders entered prn for pain IVFs changed to include K as pt has been having frequent vomiting BMP pending for today. Needs follow up with primary surgeon at [facility] when feasible No surgical intervention, surgery will sign off, reconsult prn. Objective - Vital Signs/Intake and Output Vital Signs (last 24 hours): Temp Pulse Resp BP Pulse Ox 97.9 F 67 20 111/76 96 11/22/18 08:24 11/22/18 08:24 11/22/18 08:24 11/22/18 08:24 11/22/18 08:24 - Medications Medications: Current Medications Acetaminophen (Tylenol 325mg Tab) 325 mg PO Q4 PRN PRN Reason: Pain, Mild (1-3) Acetaminophen (Tylenol 325mg Tab) 650 mg PO Q4 PRN PRN Reason: Pain, moderate (4-7) Bisacodyl (Dulcolax) [address] ONCE ONE Stop: 11/22/18 08:07 Docusate Sodium (Colace) 100 mg PO DAILY [facility] Last Admin: 11/21/18 08:34 Dose: 100 mg Enoxaparin Sodium (Lovenox) 40 mg SC DAILY [facility]; Protocol Last Admin: 11/21/18 08:35 Dose: 40 mg Hydrocortisone (Cortizone 1% Oint) 1 applic TOP BID [facility] Last Admin: 11/21/18 17:02 Dose: 1 applic Potassium Chloride/Dextrose/Sod Cl (Potassium Chl 20 Meq In D5-1/2ns) 1,000 mls @ 125 mls/hr IV .Q8H [facility] Stop: 11/23/18 08:04 Metoclopramide HCl (Reglan) 10 mg IVP Q6 [facility] Stop: 11/23/18 16:01 Ondansetron HCl (Zofran Inj) 4 mg IVP Q6 PRN PRN Reason: Nausea/Vomiting Last Admin: 11/22/18 02:13 Dose: 4 mg Pantoprazole Sodium (Protonix Inj) 40 mg IVP DAILY [facility] Polyethylene Glycol (Miralax) 17 gm PO DAILY [facility] Last Admin: 11/21/18 08:35 Dose: 17 gm Sucralfate (Carafate Oral Susp) 1 gm PO BID [facility] Last Admin: 11/21/18 17:02 Dose: 1 gm - Labs Labs: 11/21/18 05:45 11/21/18 05:45
[2018-11-22] MEDS: Hydrocortisone 1% Oint TOP SCH ×2 (09:34→17:17)
[2018-11-22] MEDS: Sucralfate 1 gm/10 ml Oral Susp UD PO SCH ×2 (09:34→17:17)
[2018-11-22] MEDS: POLYETHYLENE GLYCOL 3350 17 GM/Dose PACKET PO SCH (09:35)
[2018-11-22] MEDS: Enoxaparin 40 mg Syringe SC SCH (09:35)
[2018-11-22] MEDS: Potassium Ch 20mEq in D5-1/2NS 1,000 ML IV SCH ×2 (13:01→16:15)
--- NOTE | 2018-11-22 13:20 | CP.PCM.PN ---
Subjective - Date & Time of Evaluation Date of Evaluation: 11/22/18 Time of Evaluation: 10:15 - Subjective Subjective: 28 y/o F was seen and examined by bedside. Pt still complains of epigastric pain and nausea after being NPO. Last vomiting episode was last night around 10pm. Pt had BM yesterday morning and this morning, with soft formed stools. Last m enstrual period 1 week ago. Menses are very irregular, and the may last 1 month as per patient. Objective - Vital Signs/Intake and Output Vital Signs (last 24 hours): Temp Pulse Resp BP Pulse Ox 97.9 F 67 20 111/76 96 11/22/18 08:24 11/22/18 08:24 11/22/18 08:24 11/22/18 08:24 11/22/18 08:24 - Medications Medications: Current Medications Acetaminophen (Tylenol 325mg Tab) 325 mg PO Q4 PRN PRN Reason: Pain, Mild (1-3) Acetaminophen (Tylenol 325mg Tab) 650 mg PO Q4 PRN PRN Reason: Pain, moderate (4-7) Docusate Sodium (Colace) 100 mg PO DAILY [facility] Last Admin: 11/22/18 09:34 Dose: 100 mg Enoxaparin Sodium (Lovenox) 40 mg SC DAILY [facility]; Protocol Last Admin: 11/22/18 09:35 Dose: 40 mg Hydrocortisone (Cortizone 1% Oint) 1 applic TOP BID [facility] Last Admin: 11/22/18 09:34 Dose: 1 applic Potassium Chloride/Dextrose/Sod Cl (Potassium Chl 20 Meq In D5-1/2ns) 1,000 mls @ 125 mls/hr IV .Q8H [facility] Stop: 11/23/18 08:04 Last Admin: 11/22/18 13:01 Dose: 125 mls/hr Metoclopramide HCl (Reglan) 10 mg IVP Q6 [facility] Stop: 11/23/18 16:01 Last Admin: 11/22/18 09:36 Dose: 10 mg Ondansetron HCl (Zofran Inj) 4 mg IVP Q6 PRN PRN Reason: Nausea/Vomiting Last Admin: 11/22/18 02:13 Dose: 4 mg Pantoprazole Sodium (Protonix Inj) 40 mg IVP DAILY [facility] Last Admin: 11/22/18 09:36 Dose: 40 mg Polyethylene Glycol (Miralax) 17 gm PO DAILY [facility] Last Admin: 11/22/18 09:35 Dose: 17 gm Sucralfate (Carafate Oral Susp) 1 gm PO BID [facility] Last Admin: 11/22/18 09:34 Dose: 1 gm - Labs Labs: 11/21/18 05:45 11/21/18 05:45 - Constitutional Appears: No Acute Distress - Head Exam Head Exam: NORMAL INSPECTION - Eye Exam Eye Exam: EOMI, Normal appearance - ENT Exam ENT Exam: Mucous Membranes Moist - Neck Exam Neck Exam: Full ROM, Normal Inspection - Respiratory Exam Respiratory Exam: NORMAL BREATHING PATTERN. absent: Rhonchi, Wheezes, Respiratory Distress - GI/Abdominal Exam GI & Abdominal Exam: Soft, Tenderness Additional comments: Obese, bowel sounds present, tender on epigastric and lower quadrants. No rigidity and no guarding. - Extremities Exam Extremities Exam: Full ROM, Normal Inspection. absent: Calf Tenderness, Pedal Edema, Tenderness - Neurological Exam Neurological Exam: Alert, Awake, Oriented x3 Assessment and Plan - Assessment and Plan (Free Text) Assessment: 28 y/o F s/p sleeve gastrectomy was admitted for evaluation and management of intractable nausea and emesis. --CT Abdomen on 11/20/18 consistent with ileus with NO obstruction. PLAN > Postoperative ileus/Intractable vomiting --Afebrile, leukocytosis resolved and likely due to emesis --POD 18, S/P Sleeve gastrectomy --General Surgery on board, Dr Camacho --On IV Zofran and Metoclopramide --Still nauseous, vomited last night --PO Tylenol for pain --NPO, will advance as needed to full liquid diet. >Constipation --Resolved --S/P fleet enema, --Last bowel movement today. >Abnormal U/A --Asymptomatic --Hematuria and small leuko esterase, likely menses. --F/U symptoms. >DVT prophylaxis --SCD's --Lovenox 40mg SC daily Case discussed with Dr Rashard Lemus PGY-2
[2018-11-22] MEDS ORDERED: Sucralfate 1 gm/10 ml Oral Susp UD PO ONE (23:34)
[2018-11-23] MEDS: Potassium Ch 20mEq in D5-1/2NS 1,000 ML IV SCH (00:26)
[2018-11-23 07:26] LABS: HEMOGLOBIN 14.1 g/dL (12.0-16.0); MEAN CELL VOLUME 93.2 fl (81.0-99.0); MEAN CORPUSCULAR HGB CONC 33.2 g/dL (33.0-37.0); RBC 4.54 Mil/uL (3.80-5.20); RED CELL DISTRIBUTION WIDTH 12.7 % (11.5-14.5); WHITE BLOOD COUNT 6.5 K/uL (4.8-10.8)
[2018-11-23 07:37] LABS: BLOOD UREA NITROGEN 10 mg/dl (7-17); CALCIUM 8.9 mg/dL (8.4-10.2); GFR NON-AFRICAN AMERICAN > 60
[2018-11-23 08:47] VITALS: BP 153/83; PULSE 93; RESP 21; TEMP 97.4; O2SAT 96
[2018-11-23] MEDS: POLYETHYLENE GLYCOL 3350 17 GM/Dose PACKET PO SCH (09:50)
[2018-11-23] MEDS: Sucralfate 1 gm/10 ml Oral Susp UD PO SCH (09:50)
[2018-11-23] MEDS: Enoxaparin 40 mg Syringe SC SCH (09:50)
[2018-11-23] MEDS: Hydrocortisone 1% Oint TOP SCH (09:50)
--- NOTE | 2018-11-23 15:48 | CP.PCM.DIS ---
<MariahApolloo - Last Filed: 11/23/18 15:45> Provider - Provider Date of Admission: 11/23/18 08:09 Attending physician: Shakir Wetzel MD Primary care physician: Dr Cotter -Bariatric Surgery Consults: 11/20/18 05:24 Surgery [General Surgery Consult] Stat Comment: Consulting Provider: Bret Camacho Consulting Physician: Bret Camacho Reason for Consult: abdominal pain, vomiting, constipation post-op 11/23/18 09:19 Gastroenterology Consult Routine Comment: Consulting Provider: Jason Guerrier Consulting Physician: Jason Guerrier Reason for Consult: Intractable vomiting, S/P sleeve gastrectomy Time Spent in preparation of Discharge (in minutes): 30 Diagnosis - Discharge Diagnosis (1) Abdominal pain Status: Acute Comment: -Left AMA. Prescriptions for Pepcid, Sucralfate, Zofran ODT were given to pt. (2) Intractable vomiting Status: Acute Comment: --Left AMA. Prescriptions for Pepcid, Sucralfate, Zofran ODT were given to pt. Hospital Course - Lab Results Lab Results: Micro Results 11/20/18 02:53 Blood Blood Culture - Preliminary NO GROWTH AFTER 3 DAYS Most Recent Lab Values WBC 6.5 K/uL (4.8-10.8) 11/23/18 05:30 RBC 4.54 Mil/uL (3.80-5.20) 11/23/18 05:30 Hgb 14.1 g/dL (12.0-16.0) 11/23/18 05:30 Hct 42.3 % (34.0-47.0) 11/23/18 05:30 MCV 93.2 fl (81.0-99.0) 11/23/18 05:30 MCH 31.0 pg (27.0-31.0) 11/23/18 05:30 MCHC 33.2 g/dL (33.0-37.0) 11/23/18 05:30 RDW 12.7 % (11.5-14.5) 11/23/18 05:30 Plt Count 157 K/uL (130-400) 11/23/18 05:30 MPV 12.9 fl (7.2-11.7) H 11/20/18 03:01 Neut % (Auto) 88.1 % (50.0-75.0) H 11/20/18 03:01 Lymph % (Auto) 5.4 % (20.0-40.0) L 11/20/18 03:01 Rincon % (Auto) 6.1 % (0.0-10.0) 11/20/18 03:01 Eos % (Auto) 0.1 % (0.0-4.0) 11/20/18 03:01 Baso % (Auto) 0.3 % (0.0-2.0) 11/20/18 03:01 Neut # (Auto) 12.3 K/uL (1.8-7.0) H 11/20/18 03:01 Lymph # (Auto) 0.8 K/uL (1.0-4.3) L 11/20/18 03:01 Rincon # (Auto) 0.8 K/uL (0.0-0.8) 11/20/18 03:01 Eos # (Auto) 0.0 K/uL (0.0-0.7) 11/20/18 03:01 Baso # (Auto) 0.0 K/uL (0.0-0.2) 11/20/18 03:01 Neutrophils % (Manual) 92 % (42-75) H 11/20/18 03:01 Band Neutrophils % 1 % (0-2) 11/20/18 03:01 Lymphocytes % (Manual) 3 % (20-50) L 11/20/18 03:01 Monocytes % (Manual) 4 % (0-10) 11/20/18 03:01 Platelet Estimate Normal (NORMAL) 11/20/18 03:01 Anisocytosis (manual) Slight 11/20/18 03:01 Sodium 140 mmol/l (132-148) 11/23/18 05:30 Potassium 4.0 MMOL/L (3.6-5.0) 11/23/18 05:30 Chloride 102 mmol/L (98-107) 11/23/18 05:30 Carbon Dioxide 22 mmol/L (22-30) 11/23/18 05:30 Anion Gap 20 (10-20) 11/23/18 05:30 BUN 10 mg/dl (7-17) 11/23/18 05:30 Creatinine 0.7 mg/dl (0.7-1.2) 11/23/18 05:30 Est GFR ( Amer) > 60 11/23/18 05:30 Est GFR (Non-Af Amer) > 60 11/23/18 05:30 Random Glucose 82 mg/dL (65-105) 11/23/18 05:30 Calcium 8.9 mg/dL (8.4-10.2) 11/23/18 05:30 Phosphorus 4.3 mg/dl (2.5-4.5) 11/23/18 05:30 Magnesium 1.9 MG/DL (1.6-2.3) 11/23/18 05:30 Total Bilirubin 0.4 mg/dl (0.2-1.3) 11/21/18 05:45 AST 24 U/L (14-36) 11/21/18 05:45 ALT 58 U/L (9-52) H 11/21/18 05:45 Alkaline Phosphatase 114 U/L (38-126) 11/21/18 05:45 Total Protein 5.8 G/DL (6.3-8.2) L 11/21/18 05:45 Albumin 3.2 g/dL (3.5-5.0) L 11/21/18 05:45 Globulin 2.6 gm/dL (2.2-3.9) 11/21/18 05:45 Albumin/Globulin Ratio 1.2 (1.0-2.1) 11/21/18 05:45 Lipase 266 U/L (23-300) 11/20/18 03:01 Urine Color Yellow (YELLOW) 11/21/18 10:20 Urine Clarity Slighty-cloudy (Clear) 11/21/18 10:20 Urine pH 6.0 (5.0-8.0) 11/21/18 10:20 Ur Specific Carmichaels 1.026 (1.003-1.030) 11/21/18 10:20 Urine Protein 100 mg/dL (NEGATIVE) 11/21/18 10:20 Urine Glucose (UA) Neg mg/dL (NEGATIVE) 11/21/18 10:20 Urine Ketones 80 mg/dL (NEGATIVE) 11/21/18 10:20 Urine Blood Moderate (NEGATIVE) 11/21/18 10:20 Urine Nitrate Negative (NEGATIVE) 11/21/18 10:20 Urine Bilirubin Negative (NEGATIVE) 11/21/18 10:20 Urine Urobilinogen 2.0 mg/dL (0.2-1.0) H 11/21/18 10:20 Ur Leukocyte Esterase Small Vida/uL (Negative) 11/21/18 10:20 Urine RBC (Auto) 104 /hpf (0-3) H 11/21/18 10:20 Urine Microscopic WBC 19 /hpf (0-5) H 11/21/18 10:20 Ur Squamous Epith Cells 1 /hpf (0-5) 11/21/18 10:20 Urine Bacteria Rare (<OCC) 11/21/18 10:20 - Hospital Course Hospital Course: 28 y/o F s/p sleeve gastrectomy on 11/04/18 was admitted for evaluation and management of intractable nausea and emesis, and constipation. CT Abdomen consistent with ileus with NO obstruction. Pt had bowel movement after digital disimpaction and fleet enema. Pt remained nauseous with episodes of vomiting for the past 4 days despite scheduled Reglan and PRN Zofran. Epigastric improved mildly with Pepcid and Pantoprazole. Last vomiting episode today at 1am. --Pt decided to leave hospital AMA. Pt was extensively educated on the possible risks and complications from her decision, which include but not limited to poor PO tolerance, dehydration, electrolyte imbalance and . Pt awake, alert and oriented to person, time and placed, reported verbal understanding of her situation. Pt was able to enumerate possible complications. Pt was sured of her decision and signed AMA papers. Pt was instructed to f/u with bariatric surgeon, Dr Cotter, immediately. - Date & Time of H&P Date of H&P: 11/20/18 Time of H&P: 05:30 Discharge Exam - Head Exam Head Exam: ATRAUMATIC, NORMAL INSPECTION - Eye Exam Eye Exam: EOMI, Normal appearance - ENT Exam ENT Exam: Mucous Membranes Moist - Neck Exam Neck exam: Full Rom, Normal Inspection - Respiratory Exam Respiratory Exam: Clear to PA & Lateral, NORMAL BREATHING PATTERN, UNREMARKABLE - Cardiovascular Exam Cardiovascular Exam: REGULAR RHYTHM, +S1, +S2 - GI/Abdominal Exam GI & Abdominal Exam: Normal Bowel Sounds, Soft. absent: Distended, Guarding, Rebound, Rigid, Tenderness - Extremities Exam Extremities exam: full ROM, normal inspection, pedal pulses present - Neurological Exam Neurological exam: Alert, Oriented x3 Discharge Plan - Discharge Medications Prescriptions: Docusate [Colace] 100 mg PO DAILY #30 cap Famotidine [Pepcid] 20 mg PO DAILY #30 tab Ondansetron ODT [Zofran ODT] 4 mg PO TID #14 odt Sucralfate [Carafate Oral Susp] 1 gm PO TID 15 Days - Follow Up Plan Condition: FAIR Disposition: AGAINST MEDICAL ADVICE Instructions: Constipation, Adult (DC), Nausea and Vomiting, Adult (DC), Care After Weight Loss Surgery Additional Instructions: follow up with primary MD and surgeon immediately Referrals: Bret Camacho MD [Staff Provider] - <Nannette Price - Last Filed: 11/23/18 17:17> Provider - Provider Date of Admission: 11/23/18 08:09 Attending physician: Shakir Wetzel MD Consults: 11/20/18 05:24 Surgery [General Surgery Consult] Stat Comment: Consulting Provider: Bret Camacho Consulting Physician: Bret Camacho Reason for Consult: abdominal pain, vomiting, constipation post-op 11/23/18 09:19 Gastroenterology Consult Routine Comment: Consulting Provider: Jason Guerrier Consulting Physician: Jason Guerrier Reason for Consult: Intractable vomiting, S/P sleeve gastrectomy Hospital Course - Lab Results Lab Results: Micro Results 11/20/18 02:53 Blood Blood Culture - Preliminary NO GROWTH AFTER 3 DAYS Most Recent Lab Values WBC 6.5 K/uL (4.8-10.8) 11/23/18 05:30 RBC 4.54 Mil/uL (3.80-5.20) 11/23/18 05:30 Hgb 14.1 g/dL (12.0-16.0) 11/23/18 05:30 Hct 42.3 % (34.0-47.0) 11/23/18 05:30 MCV 93.2 fl (81.0-99.0) 11/23/18 05:30 MCH 31.0 pg (27.0-31.0) 11/23/18 05:30 MCHC 33.2 g/dL (33.0-37.0) 11/23/18 05:30 RDW 12.7 % (11.5-14.5) 11/23/18 05:30 Plt Count 157 K/uL (130-400) 11/23/18 05:30 MPV 12.9 fl (7.2-11.7) H 11/20/18 03:01 Neut % (Auto) 88.1 % (50.0-75.0) H 11/20/18 03:01 Lymph % (Auto) 5.4 % (20.0-40.0) L 11/20/18 03:01 Rincon % (Auto) 6.1 % (0.0-10.0) 11/20/18 03:01 Eos % (Auto) 0.1 % (0.0-4.0) 11/20/18 03:01 Baso % (Auto) 0.3 % (0.0-2.0) 11/20/18 03:01 Neut # (Auto) 12.3 K/uL (1.8-7.0) H 11/20/18 03:01 Lymph # (Auto) 0.8 K/uL (1.0-4.3) L 11/20/18 03:01 R[place]con # (Auto) 0.8 K/uL (0.0-0.8) 11/20/18 03:01 Eos # (Auto) 0.0 K/uL (0.0-0.7) 11/20/18 03:01 Baso # (Auto) 0.0 K/uL (0.0-0.2) 11/20/18 03:01 Neutrophils % (Manual) 92 % (42-75) H 11/20/18 03:01 Band Neutrophils % 1 % (0-2) 11/20/18 03:01 Lymphocytes % (Manual) 3 % (20-50) L 11/20/18 03:01 Monocytes % (Manual) 4 % (0-10) 11/20/18 03:01 Platelet Estimate Normal (NORMAL) 11/20/18 03:01 Anisocytosis (manual) Slight 11/20/18 03:01 Sodium 140 mmol/l (132-148) 11/23/18 05:30 Potassium 4.0 MMOL/L (3.6-5.0) 11/23/18 05:30 Chloride 102 mmol/L (98-107) 11/23/18 05:30 Carbon Dioxide 22 mmol/L (22-30) 11/23/18 05:30 Anion Gap 20 (10-20) 11/23/18 05:30 BUN 10 mg/dl (7-17) 11/23/18 05:30 Creatinine 0.7 mg/dl (0.7-1.2) 11/23/18 05:30 Est GFR ( Amer) > 60 11/23/18 05:30 Est GFR (Non-Af Amer) > 60 11/23/18 05:30 Random Glucose 82 mg/dL (65-105) 11/23/18 05:30 Calcium 8.9 mg/dL (8.4-10.2) 11/23/18 05:30 Phosphorus 4.3 mg/dl (2.5-4.5) 11/23/18 05:30 Magnesium 1.9 MG/DL (1.6-2.3) 11/23/18 05:30 Total Bilirubin 0.4 mg/dl (0.2-1.3) 11/21/18 05:45 AST 24 U/L (14-36) 11/21/18 05:45 ALT 58 U/L (9-52) H 11/21/18 05:45 Alkaline Phosphatase 114 U/L (38-126) 11/21/18 05:45 Total Protein 5.8 G/DL (6.3-8.2) L 11/21/18 05:45 Albumin 3.2 g/dL (3.5-5.0) L 11/21/18 05:45 Globulin 2.6 gm/dL (2.2-3.9) 11/21/18 05:45 Albumin/Globulin Ratio 1.2 (1.0-2.1) 11/21/18 05:45 Lipase 266 U/L (23-300) 11/20/18 03:01 Urine Color Yellow (YELLOW) 11/21/18 10:20 Urine Clarity Slighty-cloudy (Clear) 11/21/18 10:20 Urine pH 6.0 (5.0-8.0) 11/21/18 10:20 Ur Specific Carmichaels 1.026 (1.003-1.030) 11/21/18 10:20 Urine Protein 100 mg/dL (NEGATIVE) 11/21/18 10:20 Urine Glucose (UA) Neg mg/dL (NEGATIVE) 11/21/18 10:20 Urine Ketones 80 mg/dL (NEGATIVE) 11/21/18 10:20 Urine Blood Moderate (NEGATIVE) 11/21/18 10:20 Urine Nitrate Negative (NEGATIVE) 11/21/18 10:20 Urine Bilirubin Negative (NEGATIVE) 11/21/18 10:20 Urine Urobilinogen 2.0 mg/dL (0.2-1.0) H 11/21/18 10:20 Ur Leukocyte Esterase Small Vida/uL (Negative) 11/21/18 10:20 Urine RBC (Auto) 104 /hpf (0-3) H 11/21/18 10:20 Urine Microscopic WBC 19 /hpf (0-5) H 11/21/18 10:20 Ur Squamous Epith Cells 1 /hpf (0-5) 11/21/18 10:20 Urine Bacteria Rare (<OCC) 11/21/18 10:20 Attending/Attestation - Attestation I have personally seen and examined this patient.: Yes I have fully participated in the care of the patient.: Yes I have reviewed all pertinent clinical information, including history, physical exam and plan: Yes Notes (Text): Ileus Intractable Vomiting s/p Gastric Sleeve (Nov 04) Constipation - abd pain improved, abdomen soft, no vomiting this am however vomited 2x last night - plan is to start Clear Liquid diet today - Pt refused to stay and gradually be started on diet , she signed AMA despite explanation of benefits and risk - refused IVF overnight - Surgery on case
== END 2018-11-23 14:25 | disposition left against medical advice (07) | DRG 181 ==
LOC: H.ER 20:59 → H.ERHOLD 11-20 05:27 → H.MEDSURG1 11-20 06:35 → OBSVTOIN 11-23 08:09
PROVIDERS: ADMIT Hospitalist; ATTEND Hospitalist
DX: K56.41 Fecal impaction (principal); E66.01 Morbid (severe) obesity due to excess calories; F12.90 Cannabis use, unspecified, uncomplicated; Z68.41 Body mass index [BMI] 40.0-44.9, adult; K56.7 Ileus, unspecified; Z87.891 Personal history of nicotine dependence; Z90.49 Acquired absence of other specified parts of digestive tract; Z98.84 Bariatric surgery status